=== PATIENT | female | born 1985 | race African-American/Black ===

== ENCOUNTER 2017-09-19 18:27 | Emergency (ER) | payer OTHER ==
[~2017-09-19] VITALS: Ht 154.9 cm; Wt 77.1 kg
[~2017-09-19 18:27] MED LIST: MOBIC15 MG PO; NOHOMEMEDICATIONS; TRINATE TABLET1 TAB PO
[2017-09-19] MEDS ORDERED: PROAIR HFA8.5 GM INH (18:47)
[2017-09-19] MEDS ORDERED: TESSALON PERLE100 MG PO (18:47)
[2017-09-19] MEDS ORDERED: ZPAK PO (18:47)
[2017-09-19 18:57] VITALS: BP 115/68
== END 2017-09-19 18:58 | disposition home or self-care (01) ==
LOC: M.ERS 18:27
DX: J11.1 Influenza due to unidentified influenza virus with other respiratory manifestations (principal); Z90.89 Acquired absence of other organs

== ENCOUNTER 2017-10-23 16:10 | Emergency (ER) | payer OTHER ==
[~2017-10-23] VITALS: Ht 154.9 cm; Wt 79.4 kg
[~2017-10-23 16:10] MED LIST changes: +PROAIR HFA8.5 GM INH; +TESSALON PERLE100 MG PO; +ZPAK PO
[2017-10-23 16:59] LABS: URINE BILIRUBIN NEGATIVE (Negative); URINE BLOOD 3+ (Negative); URINE CLARITY CLOUDY; URINE COLOR RED; URINE GLUCOSE-RANDOM NEGATIVE (Negative); URINE LEUKOCYTES-REFLEX TRACE (Negative); URINE SPECIFIC GRAVITY 1.025 (1.005-1.030)
[2017-10-23 17:01] LABS: URINE KETONES NEGATIVE (Negative); URINE NITRITE-REFLEX NEGATIVE (Negative); URINE PROTEIN 1+ (Negative); URINE UROBILINOGEN 0.2 E.U./dl (0.2-1.0)
[2017-10-23 17:04] LABS: CASTS None Seen /LPF (None Seen); CRYSTALS None Seen /LPF (None Seen); MUCUS 0-3 Light strn/LPF (None Seen); SQUAMOUS 4-10 Moderate /LPF (0-3); URINE RBC >20 Many /HPF (0-2); URINE WBC-REFLEX 0-5 Rare /HPF (0-5)
[2017-10-23 17:08] LABS: HEMATOCRIT 34.2 % (37.0-47.0); HEMOGLOBIN 11.3 gm/dL (12.0-15.0)
[2017-10-23] MEDS ORDERED: FLAGYL500 MG PO (17:20)
[2017-10-23 17:29] VITALS: BP 116/53
== END 2017-10-23 17:30 | disposition home or self-care (01) ==
LOC: M.ERS 16:10
PROVIDERS: Physician Assistant
DX: N93.8 Other specified abnormal uterine and vaginal bleeding (principal); N76.0 Acute vaginitis; B96.89 Other specified bacterial agents as the cause of diseases classified elsewhere; Z90.89 Acquired absence of other organs

== ENCOUNTER 2021-09-09 20:19 | Emergency (ER) | payer OTHER ==
[~2021-09-09] VITALS: Ht 170.2 cm; Wt 72.6 kg
[~2021-09-09 20:19] MED LIST changes: +FLAGYL500 MG PO
[2021-09-09] MEDS ORDERED: TOPAMAX25 M1 PO (20:35)
[2021-09-09] MEDS ORDERED: IBU800 MG PO (20:35)
[2021-09-09 21:21] LABS: URINE BILIRUBIN NEGATIVE (Negative); URINE BLOOD TRACE (Negative); URINE CLARITY CLEAR; URINE COLOR YELLOW; URINE GLUCOSE-RANDOM NEGATIVE (Negative); URINE KETONES NEGATIVE (Negative); URINE LEUKOCYTES-REFLEX NEGATIVE (Negative); URINE NITRITE-REFLEX NEGATIVE (Negative); URINE PROTEIN NEGATIVE (Negative); URINE UROBILINOGEN 0.2 E.U./dl (0.2-1.0)
[2021-09-09] MEDS ORDERED: ZOFRAN ODT4 MG DISSOLVE (21:41)
[2021-09-09 21:45] VITALS: BP 123/77
== END 2021-09-09 21:45 | disposition home or self-care (01) ==
LOC: M.ERS 20:19
PROVIDERS: Emergency Medicine Emergency Medical Services
DX: R19.7 Diarrhea, unspecified (principal); Z20.822 Contact with and (suspected) exposure to COVID-19; R51.9 Headache, unspecified; R11.2 Nausea with vomiting, unspecified; R10.32 Left lower quadrant pain; Z90.89 Acquired absence of other organs; Z98.51 Tubal ligation status; Z79.899 Other long term (current) drug therapy